=== PATIENT | female | born 1995 | race Caucasian/White ===

== ENCOUNTER 2023-09-02 12:48 | Outpatient (CLI) | payer OTHER, SELFPAY ==
[2023-09-02 21:26] LABS: Chlamydia DNA Amplified* NOT DETECTED (No Detected); GC DNA Amplified* NOT DETECTED (No Detected)
== END 2023-09-02 12:49 | disposition home or self-care (01) ==
PROVIDERS: Visit Provider Physician Assistant
DX: Z34.91 Encounter for supervision of normal pregnancy, unspecified, first trimester (principal)
CPT/HCPCS: 86592; 86703; 86704; 86706; 86762; 86787; 86803; 86850; 86900; 86901; 87086; 87340; 87491; 87591

== ENCOUNTER 2023-12-16 18:30 | Outpatient (CLI) | payer OTHER, SELFPAY | END 2023-12-16 18:31 | disposition home or self-care (01) | PROVIDERS: Visit Provider Advanced Practice Midwife | DX: Z34.82 Encounter for supervision of other normal pregnancy, second trimester (principal); Z3A.27 27 weeks gestation of pregnancy | CPT/HCPCS: 84450; 84460; 86592 ==

== ENCOUNTER 2023-12-17 12:24 | Outpatient (CLI) | payer OTHER, SELFPAY | END 2023-12-17 12:25 | disposition home or self-care (01) | LOC: NFLDREF 12-19 11:23 | PROVIDERS: Visit Provider Advanced Practice Midwife | DX: Z34.82 Encounter for supervision of other normal pregnancy, second trimester (principal); Z3A.27 27 weeks gestation of pregnancy | CPT/HCPCS: 82570; 84156 ==

== ENCOUNTER 2024-01-06 15:59 | Outpatient (CLI) | payer OTHER, SELFPAY ==
--- NOTE | 2024-01-06 16:00 | CRLHL7_ITS ---
For Patients: As a result of the Century Cures Act, medical imaging exams and procedure reports are released immediately into your electronic medical record. You may view this report before your referring provider. If you have questions, please contact your health care provider. INDICATION: Third trimester scan, evaluate growth. COMPARISON: none TECHNIQUE: Real time esparza scale imaging of the fetus was performed. FINDINGS: Sonographic imaging demonstrates a single living intrauterine gestation. Fetus demonstrates a regular cardiac rate of 155 beats per minute. Fetus has a vertex position. The placenta lies anteriorly. Amniotic fluid volume appears normal and there is a single deepest vertical pocket: 7.7 cm. The estimated weight is 1562gm which lies at the 27th %. BPD 23rd percentile. HC is 25th percentile. AC is 16th percentile. FL 57th percentile. The HC/AC ratio measures 1.12 range (0.97-1.18). IMPRESSION: Sonographic gestational age 30 weeks 4 days and sonographic due date of 03/12/2024. Good correlation with dates. Estimated weight 27th percentile. Abdominal circumference 16th percentile. Dictated by Javon Singh MD @ 01/07/2024 12:30:34 PM (Electronically Signed)
== END 2024-01-06 16:00 | disposition home or self-care (01) ==
LOC: US 16:01
PROVIDERS: Visit Provider Advanced Practice Midwife
DX: Z34.83 Encounter for supervision of other normal pregnancy, third trimester (principal); Z3A.30 30 weeks gestation of pregnancy
CPT/HCPCS: 76816

== ENCOUNTER 2024-02-17 19:44 | Outpatient (CLI) | payer OTHER, SELFPAY ==
[2024-02-18 13:38] LABS: Strep B DNA Probe Negative (Negative)
[2024-02-18 13:46] LABS: Strep B Susceptibility Needed? No
== END 2024-02-17 19:45 | disposition home or self-care (01) ==
LOC: NFLDREF 19:44
PROVIDERS: Visit Provider Advanced Practice Midwife
DX: O09.93 Supervision of high risk pregnancy, unspecified, third trimester (principal); Z3A.36 36 weeks gestation of pregnancy
CPT/HCPCS: 87081; 87653

== ENCOUNTER 2024-03-10 04:14 | Inpatient (IN) | payer OTHER, SELFPAY ==
[2024-03-10] VITALS (38 sets, daily range): BP systolic 106–154; BP diastolic 55–93; PULSE 54–84; RESP 16; TEMP 36.4–36.9; O2SAT 84–100
[2024-03-10] MEDS: LACTATED RINGERS 1000 ML 1,000 ML 1200 ML IV ×2 (04:46→05:40)
[2024-03-10 05:02] LABS: Basophils Absolute Auto 0.02 K/uL (0.00-0.30); Basophils Percent Auto 0.2 % (0.0-3.0); Eosinophils Absolute Auto 0.07 K/uL (0.00-0.50); Eosinophils Percent Auto 0.7 % (0.0-7.0); Hematocrit 37.6 % (33.0-51.0); Hemoglobin* 12.6 gm/dL (12.0-16.0); Immature Granulocytes Abs Auto 0.01 K/uL (0.00-0.30); Immature Granulocytes Pct Auto 0.1 %; Lymphocytes Absolute Auto 2.54 K/uL (0.90-2.90); Lymphocytes Percent Auto 26.1 % (20-44); Mean Corpuscular HGB Conc 34 gm/dL (32-36); Mean Corpuscular Hemoglobin 28 pg (26-34); Mean Corpuscular Volume 83 fL (80-100); Monocytes Percent Auto 5.2 % (0.0-11.0); Neutrophils Percent Auto 67.7 % (42.0-72.0); Platelet Count* 244 K/uL (140-440); RDW Coefficient of Variation % 13.5 % (11.5-15.5); Red Blood Count 4.55 m/uL (4.00-5.20); White Blood Count* 9.75 K/uL (4.50-11.00)
[2024-03-10 05:09] LABS: Slide Review Reflex No
--- NOTE | 2024-03-10 05:13 | P.LDBA_ITS ---
Subjective History of Present Illness Narrative: Nani is a 28 yo at 39 6/7 weeks gestation being admitted to Labor and Delivery for spontaneous onset of labor. Her full history and physical was dictated by [] on []. Please see this for details. [] Specific Issues/Plans HB: Luke H&P done by PUNEET Gasca on 02/25/2024 -History of IUFD at 22, Trisomy 13 maternity T21: Negative, they do not want to know sex level 2 ultrasound: Anterior placenta, no previa. Normal anatomy, suboptimal views of spine. EFW 74% follow-up anatomy ultrasound 11/25/23:anatomy normal. EFW dropped to 24%. Recommend follow-up growth ultrasound in 4-6 weeks (30 weeks) can be done locally:EFW 27% -history of anxiety, doing well without medication -obesity, BMI 36 Hemoglobin A1c:5.3% -increased SMITH at 28 wks Reglan Rx sent PreE labs normal except AST 36 -Possible arrhythmia heard by Doppler at 36.5 wks nothing heard or traced by NST Transfer at 12 weeks and 5 days, had confirmation visit and first- trimester ultrasound only. No labs. Imagin. 08/01/2023: Single, viable intrauterine gestation with crown-rump length measurements consistent with LMP and confirmed ELIASBET of 03/11/2024 Anatomy scan: 10/28/2023 Level II with [facility]. SIUP 20.5. No anomalies identified, suboptimal views of neck and spine. Normal amniotic fluid. Reevaluate anatomy in 2-4 weeks. Others: 11/25/2023: [facility] Growth and Anatomy follow-up: SIUP 24.5. Remainder of anatomy was seen and WNL. Growth consistent with ELISABET. Recommended growth in 4-6 weeks due to hx of Trisomy 13 and growth in lower end of normal. 12/31/2023: Growth: EFW 27%ile and AC 16%ile with normal growth since previous US. Tdap: 01/06/24 OB - Problem Based A/P Additional Plan (1) Pain during labor: Status: Acute (2) 39 weeks gestation of : Status: Acute (3) History of IUFD: Problem details: Trisomy 13, induction at 22 weeks Status: Acute (4) Obesity (BMI 30-39.9): Status: Acute (5) Anxiety: Status: Acute (6) Spontaneous onset of labor: Status: Acute Plan ASSESSMENT:? 28 yo at 39 6/7 weeks gestation? complicated by:?Hx of IUFD, Hx of anxiety, BMI >36, Labor type: Spontaneous, Active labor? Category 2 FHR pattern.?? Labor complicated by: none GBS negative? ? PLAN:? 1. Routine intrapartum cares as ordered. Continue with expectant management? 2. Monitoring per policy, continuous with epidural placement? 3. Planning epidural for pain management. Candidate for analgesia of choice.?? 4. Patient encouraged to reposition and ambulate to promote physiologic labor and .? 5. Anticipate ? Delivery/Labor/Induction Plan Plan: expectant management OB Exam Physical Exam Vital signs: Temp Pulse BP Pulse Ox 98.5 F 74 137/93 H 100 03/10/24 05:08 03/10/24 05:11 03/10/24 05:11 03/10/24 04:28 Narrative: Vitals Reviewed Constitutional:? Alert and oriented x3 HEENT:? Normocephalic, atraumatic Neck:? Supple Lungs:? Clear to auscultation bilaterally Heart:? Regular rate and rhythm, no murmur, rub or gallop Abdomen:? Soft, nontender, and gravid. Vertex by Isaiah's, confirmed with cervical exam. Extremities:? No edema or erythema Cervix: 8 cm/90%/-1 station/vertex NST: 145 bpm/moderate variability/no accelerations/unable to determine decelerations/contractions every 2-3 minutes Detailed Labor and Delivery Exam Patient Gravid: Yes
[2024-03-10] MEDS: fentaNYL 100 MCG/2 ML inj 25 MCG INTRATHECA (05:31)
[2024-03-10] MEDS: PHENYLEPHRINE 100 MCG/ML SYRINGE IVP (05:33)
[2024-03-10] MEDS: ONDANSETRON 2 MG/ML inj 4 MG IV (05:38)
--- NOTE | 2024-03-10 05:52 | P.ANBPRC_ITS ---
[facility] Medical History PCOS (polycystic ovarian syndrome) ?E28.2 - Polycystic ovarian syndrome (ICD-10) History of IUFD ?Z87.59 - Personal history of other complications of , childbirth and the puerperium (ICD-10) Surgical History History of nasal surgery ?Z98.890 - Other specified postprocedural states (ICD-10) Social History Narrative: Occupation: health outreach worker. Marital status: . Rastafari/cultural needs: no. Chemical or radiation exposure: no. Pre- tobacco use: no. Pre- alcohol use: no. Current tobacco use: no. Current alcohol use: no. Recreational drug use: no. Dietary restrictions: no. Blood transfusion acceptable in an emergency: yes. PSYCHOSOCIAL HISTORY: History of depression or currently depressed: Denies history of depression, but history of anxiety. Current or past physical, emotional, or sexual mistreatment: Denies. Problems that will make it hard to make it to appointments: No. What is your current living situation?: I presently have a place to live In the past 12 months, utilities in danger of being shut off: no In past 12 months, lack of transportation kept you from medical appts, meetings, work, or getting things needed for daily living: no In the past 12 mos, have been you worried that your food would run out before you had money to buy more?: never true In the past 12 mos, the food you bought just didn't last and you didn't have money to buy more?: never true Smoking Status: Never smoker How often does anyone, including family, friends and others, physically hurt you : never How often does anyone, including family, friends and others, insult or talk down to you: never How often does anyone, including family, friends and others, threaten you with harm: never How often does anyone, including family, friends and others, scream or curse at you: never Little interest or pleasure in doing things: not at all Feeling down, depressed, or hopeless: not at all Meds Home Medications and Allergies Home Medications ?Medication ?Instructions ?Recorded ?Confirmed ?Type docosahexaenoic acid 200 mg mg PO 09/02/23 03/09/24 History capsule ( DHA) ferrous sulfate 134 mg (27 mg 134 mg PO QDAY 09/02/23 03/09/24 History iron) tablet Allergies Allergy/AdvReac Type Severity Reaction Status Date / Time No Known Drug Allergies Allergy Verified 03/09/24 17:29 Results Labs Labs: Laboratory Results - last 24 hr 03/10/24 04:45 WBC 9.75 RBC 4.55 Hgb 12.6 Hct 37.6 MCV 83 MCH 28 MCHC 34 RDW Coeff of Alvaro 13.5 Plt Count 244 Neut % (Auto) 67.7 Lymph % (Auto) 26.1 [place] % (Auto) 5.2 Eos % (Auto) 0.7 Baso % (Auto) 0.2 Neut # (Auto) 6.60 Lymph # (Auto) 2.54 [place] # (Auto) 0.50 Eos # (Auto) 0.07 Baso # (Auto) 0.02 Abs Immat Gran (auto) 0.01 Imm/Tot Granulo (auto) 0.1 Vital Signs Vital Signs: Last Vital Signs Temp 98.5 F 03/10/24 05:08 Pulse 64 03/10/24 05:41 BP 154/64 H 03/10/24 05:41 Pulse Ox 100 03/10/24 05:51 Anesthesia Procedures Intrathecal Patient Location: OB Start Time: 05:18 Stop Time: 05:51 Start Date: 03/10/24 Stop Date: 03/10/24 Reason for Block: procedure for pain Patient Position: sitting Performed By: Jennifer Emanuel Preanesthetic Checklist: IV checked, site marked, risks and benefits discussed, monitors and equipment checked, pre-op evaluation, timeout performed and anesthesia consent Prep: chlorhexidine gluconate Monitoring: blood pressure monitoring, continuous pulse oximetry and heart rate Approach: midline Vertebral Space: lumbar (1-5) Needle Type: Pencan Injection Technique: single-shot Needle gauge: 25 Needle Length (cm): 10 cm
[2024-03-10] MEDS: OXYTOCIN 30 unit/500 ML in NS 30 UNIT/500 ML BAG 300 UNIT IVPB (06:50)
--- NOTE | 2024-03-10 07:28 | W.PM.OBVAGDE ---
OB Procedure Vag Delivery Mother Details Mother Details: Nani is a 28 year-old, 3, now Para 2102, admitted on 03/10/24 at 39.6 weeks gestation. : 3 Para: 2 Weeks Gestation: 39.6 Admission Date: 03/10/24 Additional Details Amniotic Membrane Status: AROM Amniotic Membrane Rupture Date: 03/10/24 Amniotic Membrane Rupture Time: 05:42 Amniotic Membrane Fluid Description: Clear Analgesia/Anesthesia Type: Epidural Waterbirth: No Pitcoin: Yes Intrapartal Events: Mod/Heavy Meconium Fluid Labor Onset: 02:30 Complete: 06:04 Pushin:04 Heart: heart tones during second stage were category II with return to baseline between contractions, reassuring. Delivery Details Delivery Date: 03/10/24 Delivery Time: 06:47 Infant Gender: Female Infant Viability: Alive; Heart Rate Present Position at Delivery: OP Delivery Details: Patient was admitted for spontaneous onset of labor and progressed normally. She received an epidural for pain relief. After she was comfortable, AROM was performed with moderate meconium stained fluid. Patient was assumed complete with onset of pushing at 0604. of a viable female at 0647 in semi-reclined on the bed. Vertex delivered direct OP. No nuchal cord or shoulder. Body delivered easily and without incident. Infant passed to mothers abdomen with a vigorous cry. Cord was clamped and cut at > 5 minutes. APGARS were 8 at one minute and 9 at five minutes respectively. Mouth was bulb suctioned. Intact placenta with a 3 vessel cord delivered spontaneously at 0658. Fundus firm. Perineal 1st degree identified and repaired in typical fashion. QBL 200 cc. Patient was I&O'd after delivery for 250 cc. Mother and baby stable; mother plans to breastfeed. weight pending. 1 Minute Interval Total Score: 8 5 Minute Interval Total Score: 9 Additional Details Shoulder Dystocia: No Placenta Delivery Time: 06:57 Placental Delivery Description: Spontaneous Delivery repair: Vicryl Procedure Done: Global Blood Loss: 200 Laceration: Perineal - 1st Degree Blood Loss Measurement Type: QBL Bakri Used: No Sponge/Need Count Correct: Yes Cord Vessel Description: 3 Vessels Event Summary Status: Mother and infant were stable after delivery. Disposition: floor
[2024-03-10] MEDS: IBUPROFEN 600 MG TABLET PO ×3 (09:01→20:45)
--- NOTE | 2024-03-10 10:19 | PM.ANPOST ---
Post Anesthesia Note Post Anesthesia Note Patient seen: Inpatient Respiratory Status: adequate Cardiovascular Status: adequate Mental Status: baseline Pain: adequate Temp: baseline Anesthetic awareness: N/A Complications: none Follow care: none
[2024-03-10] MEDS: ACETAMINOPHEN 500 MG TABLET 1000 MG PO ×2 (12:05→18:24)
[2024-03-10] MEDS: DOCUSATE SODIUM 100 MG CAPSULE PO (20:45)
[2024-03-11] MEDS: ACETAMINOPHEN 500 MG TABLET 1000 MG PO ×2 (00:15→05:53)
[2024-03-11 00:18] VITALS: BP 133/88; PULSE 76; RESP 16; TEMP 36.8; O2SAT 96
[2024-03-11] MEDS: IBUPROFEN 600 MG TABLET PO ×2 (03:04→09:35)
[2024-03-11 07:39] VITALS: BP 120/77; PULSE 67; RESP 16; TEMP 36.5; O2SAT 97
--- NOTE | 2024-03-11 08:46 | PM.OBDSVD1 ---
DS: Providers Provider Date Seen: 03/11/24 Date of admission: 03/10/24 04:14 Primary care physician: Not a Local Provider Admitting Clinician: Jania Willis CNM Attending Physician on discharge: Jania Willis CNM Date of Discharge: 03/11/24 DS: Diagnosis Discharge Diagnosis (1) Lactating mother: Status: Acute (2) care following vaginal delivery: Status: Acute (3) Elevated blood pressure reading without diagnosis of hypertension: Status: Acute (4) Anxiety: Status: Acute (5) Obesity (BMI 30-39.9): Status: Acute Exam Narrative: Exam Narrative: GENERAL APPEARANCE:? normal affect, alert, no distress? MOOD:? appropriate? CHEST:? clear to auscultation and percussion? HEART:? regular rate and rhythm? ABDOMEN:? soft, non-tender the uterine fundus is U/2 and is appropriate for the stage of recovery.? PERINEUM:? mild edema of the perineum, there is a 1st degree laceration that is healing well.? EXTREMITIES:? normal and no edema? Const: Vital Signs, click to edit/add: Vital Signs - 24 hr 03/10/24 08:48 03/10/24 08:55 03/10/24 09:00 Temperature 97.5 F L Pulse Rate 56 L Pulse Rate [Pulse Oximeter] 77 Respiratory Rate Blood Pressure 130/69 Blood Pressure [Le ft Arm] 122/80 Pulse Oximetry Oxygen Delivery Me thod 03/10/24 09:18 03/10/24 12:09 03/10/24 15:25 Temperature 98.0 F 97.7 F 98.2 F Pulse Rate Pulse Rate [Pulse Oximeter] 68 65 78 Respiratory Rate 16 16 Blood Pressure Blood Pressure [Le ft Arm] 116/72 109/73 124/84 Pulse Oximetry 96 97 Oxygen Delivery Me thod Room Air Room Air 03/10/24 20:33 03/11/24 00:18 03/11/24 07:39 Temperature 98.3 F 98.3 F 97.7 F Pulse Rate Pulse Rate [Pulse Oximeter] 81 76 67 Respiratory Rate 16 16 16 Blood Pressure Blood Pressure [Le ft Arm] 106/59 L 133/88 120/77 Pulse Oximetry 96 96 97 Oxygen Delivery Me thod Room Air Room Air Room Air Documenting provider has reviewed patient's vital signs: yes OB - DS: Summary Hospital Course Hospital Course: Nani is a 28 year old G 3 P 2 at 39.6 weeks gestation that was admitted to the Center on 03/10/24 for spontaneous labor. She had an uncomplicated vaginal delivery. She delivered a viable female . She is breast feeding and is working on latch. Feels that it is somewhat painful and would like to see before discharge. the patient has done well. Her pain is well controlled with current medications.? She has no new complaints.? Urinary output is adequate and she is voiding without difficulty.? Has a good appetite, is tolerating a general diet, is passing flatus, and has not had a bowel movement.? Has scant amount of rubra lochia.? She is ambulating well. She is planning condoms for contraception. Peripartum Data Infant delivery method: Vaginal Laceration description: Perineal - 1st Degree Episiotomy description: None complications: none [place] Infant Gender: Female Infant Discharge Plan: Home Status at Discharge Functional status at discharge: independent ambulation Overall status at discharge: patient is progressing back to baseline Time Spent with Patient Time attestation: Total time spent providing and/or coordinating discharge services: Discharge Plan Discharge Disposition: Home, Self-Care Date of Admission: 03/10/24 04:14 Primary Care Provider: Provider,Not a Local Condition: Stable Anticipated Discharge Date/Time: 03/11/24 10:00 Discharge Medications: New docusate sodium 100 mg Capsule 100 mg PO DAILY Qty: 100 0RF Rx Instructions: Take 1-2 tablets daily as needed for constipation. ibuprofen 600 mg Tablet 600 mg PO Q6H PRNQty: 60 0RF Continued metoclopramide HCl [Reglan] 10 mg tablet 10 mg PO Q6H PRN (Reason: nausea and vomiting) Qty: 30 2RF Hold Instructions: NOT USING DHA 200 mg capsule 200 mg PO DAILY ferrous sulfate 134 mg (27 mg iron) tablet 134 mg PO QDAY Discharge Orders: Discharge Order (Routine); Ordered 03/11/24 Ordered By: Miriam Sanches Patient Education: OB Vaginal/Breast Feeding Additional Instructions: Discharge instructions were reviewed with the patient including signs and symptoms of infection and home going medications.? Lifting Restrictions: 20 pounds for 6? weeks? ?? Do not drive while taking narcotic pain meds.? Off Work or School for 6 weeks.? ?? Symptoms to report to doctor:? -Bleeding that saturates more than one pad per hour? -Passing clots larger than the size of a golf ball? -Pain not relieved by prescribed medication? -Fever above 100.4 degrees Fahrenheit? -A foul vaginal odor? -Difficulty in emotions, mood and functions? -Thoughts of hurting yourself and/or ? -Painful, reddened area in your breast? -Any drainage, redness or tenderness in your IV/epidural site? -Severe headache that doesn't improve after taking medications? -Changes in vision, including temporary loss of vision, blurred vision, and/or light sensitivity? -Upper abdominal pain (usually under ribs on the right side)? -Decrease in urination or painful, frequent urinating? -Chest pain? -Shortness of breath? -Tenderness or pain with redness and/swelling in the calf(s) of your leg? ?? Follow Up in clinic in 2 and 6 weeks.? ?? consultation services are available to all mothers and babies for the first year after delivery.? To make an appointment, please call [phone].? Activity Level: Activity as Tolerated Discharge Diet: Regular Follow Up Appointments: [facility] [Provider Group] Provider,Not a Local [Primary Care Provider] - Forms: MyHealth Info Instructions
[2024-03-11 23:01] LABS: Rapid Plasma Reagin (RPR) Non Reactive (Non Reactive)
== END 2024-03-11 10:37 | disposition home or self-care (01) | DRG 807 ==
LOC: OB OUT 04:49 → OB 04:49
PROVIDERS: Admitting Provider Advanced Practice Midwife; Visit Provider Advanced Practice Midwife
DX: O99.214 Obesity complicating childbirth (principal); Z37.0 Single live birth; E66.9 Obesity, unspecified; O99.344 Other mental disorders complicating childbirth; F41.9 Anxiety disorder, unspecified; Z82.79 Family history of other congenital malformations, deformations and chromosomal abnormalities; O77.0 Labor and delivery complicated by meconium in amniotic fluid; R03.0 Elevated blood-pressure reading, without diagnosis of hypertension; Z3A.39 39 weeks gestation of pregnancy
CPT/HCPCS: 01967; 36415; 85025; 86592; 86850; 86900; 86901; A9270; J2371; J2405; J3010; J7120

== ENCOUNTER 2024-04-23 12:00 | Outpatient (CLI) | payer OTHER, SELFPAY ==
[2024-04-24 19:43] LABS: HPV Source Cervix; HPV, High Risk by TMA Not Detected
== END 2024-04-23 12:01 | disposition home or self-care (01) ==
PROVIDERS: Visit Provider Registered Nurse
DX: Z12.4 Encounter for screening for malignant neoplasm of cervix (principal)
CPT/HCPCS: 87624; 87625; 88141; 88142

== ENCOUNTER 2024-06-01 10:32 | Outpatient (CLI) | payer OTHER, SELFPAY ==
--- NOTE | 2024-06-01 10:45 | CRLHL7_ITS ---
For Patients: As a result of the Cures Act, medical imaging exams and procedure reports are released immediately into your electronic medical record. You may view this report before your referring provider. If you have questions, please contact your health care provider. RIGHT DIAGNOSTIC MAMMOGRAM WITH COMPUTER-AIDED DETECTION AND TOMOSYNTHESIS RIGHT BREAST ULTRASOUND CLINICAL HISTORY: RIGHT breast lumps. COMPARISON: None. TECHNIQUE: Digital RIGHT mammogram in two projections with computer-aided detection. Tomosynthesis was used in this interpretation. Real-time ultrasound imaging of RIGHT breast with imaging documentation. BREAST COMPOSITION: The breasts are heterogeneously dense, which may obscure small masses. FINDINGS: 3D CC/MLO RIGHT breast mammogram images submitted. No suspicious mass or architectural distortion. No suspicious calcifications. No adenopathy. Targeted RIGHT breast ultrasound performed at 4 o`clock 6 cm from the nipple. Normal breast tissue is present. No fluid collection or abscess. No solid mass. IMPRESSION: No suspicious findings. No evidence of abscess or galactocele. RECOMMENDATIONS: Clinical follow-up. Age-appropriate screening mammography. A lay language report of this examination will be provided to the patient. BI-RADS Category 1: Negative Dictated by Javon Singh MD @ 06/01/2024 12:16:46 PM /sp SP/Dictated by: Javon Singh MD @ 06/01/2024 12:16:00 PM (Electronically Signed)
--- NOTE | 2024-06-01 11:15 | CRLHL7_ITS ---
For Patients: As a result of the Century Cures Act, medical imaging exams and procedure reports are released immediately into your electronic medical record. You may view this report before your referring provider. If you have questions, please contact your health care provider. PLEASE SEE RIGHT BREAST DIAGNOSTIC MAMMOGRAM PERFORMED SAME DAY. CRL:sp SP/Dictated by: Javon Singh MD @ 06/01/2024 12:17:00 PM (Electronically Signed)
== END 2024-06-01 10:33 | disposition home or self-care (01) ==
LOC: MAMMO 10:32
PROVIDERS: Visit Provider Registered Nurse
DX: N63.10 Unspecified lump in the right breast, unspecified quadrant (principal)
CPT/HCPCS: 76642; 77065; G0279